=== PATIENT | male | born 1985 | race Caucasian/White ===

== ENCOUNTER → 2024-06-24 13:00 | Outpatient (CLI) | payer OTHER, SELFPAY ==
--- NOTE | 2024-06-24 13:02 | DI.RAD.S_ITS ---
PROCEDURE: XR FOOT LT MIN 3V INDICATIONS: Left foot/pinky injury TECHNIQUE: 3 views of the foot were acquired. COMPARISON: None. FINDINGS: Bones: No fractures or dislocations. No suspicious bony lesions. Soft tissues: No tibiotalar joint effusion. Achilles tendon appears normal. IMPRESSION: No acute bony abnormality. Approved by: Aidan Carmona M.D. on 06/24/2024 at 12:51
== END ==
PROVIDERS: Referring Provider Physician Assistant Surgical; Visit Provider Physician Assistant Surgical
DX: M79.675 Pain in left toe(s) (principal)
CPT/HCPCS: 73630